=== PATIENT | male | born 1950 | race Caucasian/White ===

== ENCOUNTER 2018-06-14 14:42 | Outpatient (REF) | payer OTHER, SELFPAY ==
[2018-06-14 22:09] LABS: HCT 45.7 % (40.0-50.0); HGB 15.4 g/dL (13.5-17.5); Mean Corp. HGB Concentration 33.7 g/dL (32.0-36.0); Mean Corpuscular Volume 88.9 fL (80-95); Mean Platelet Volume 10.7 fL (8.0-11.0); Platelet Count 169 x1000/uL (130-400); RBC 5.14 m/cumm (4.50-6.00); RBC Distribution Width 12.9 % (11.8-14.1); White Blood Cell Count 7.35 k/cumm (4.4-10.8)
[2018-06-14 22:37] LABS: Anion Gap 8.7 mmol/L (3-11); BUN 17 mg/dL (7-18); CO2 29.3 mmol/L (21.0-32.0); CREATININE 0.93 mg/dL (0.70-1.30); Calcium 9.1 mg/dL (8.5-10.1); Chloride 103 mmol/L (98-107); Glucose 88 mg/dL (70-100); Potassium 4.6 mmol/L (3.5-5.1); Sodium 141 mmol/L (136-145)
== END 2018-06-14 15:02 ==
LOC: NCHCN 14:42
PROVIDERS: PCP Family Medicine; Visit Provider Nurse Practitioner Family
DX: R53.83 Other fatigue (principal); Z13.1 Encounter for screening for diabetes mellitus
CPT/HCPCS: 80048; 85027; 84443

== ENCOUNTER 2021-02-20 11:20 | Outpatient (REF) | payer MEDICARE, SELFPAY ==
[2021-02-21 13:08] LABS: COVID-19 RT-PCR UVMMC Result Negative (Negative)
== END 2021-02-20 11:21 | disposition home or self-care (01) ==
LOC: NCHCN 11:20
PROVIDERS: PCP Family Medicine; Visit Provider Registered Nurse
DX: Z20.822 Contact with and (suspected) exposure to COVID-19 (principal); R19.7 Diarrhea, unspecified
CPT/HCPCS: U0003; U0005

== ENCOUNTER 2021-04-28 18:26 | Outpatient (REF) | payer MEDICARE, SELFPAY ==
[2021-04-28 15:35] LABS: HCT 47.6 % (40.0-50.0); HGB 15.5 g/dL (13.5-17.5); MCH 29.9 pg (27.0-33.0); MCHC 32.6 % (32.0-36.0); MCV 91.7 fL (80-95); MPV 10.7 fL (8.0-11.0); Platelet Count 199 10^3/uL (130-400); RBC 5.19 10^6/uL (4.36-5.78); RDW 12.1 % (11.8-14.1); WBC 7.27 10^3/uL (4.4-10.8)
[2021-04-28 15:56] LABS: ALT 32 U/L (16-63); AST 22 U/L (15-37); Albumin 3.7 g/dL (3.4-5.0); Alkaline Phosphatase 91 U/L (46-116); Anion Gap 10.5 mmol/L (3-11); BUN 17 mg/dL (7-18); Bilirubin, Total 0.6 mg/dL (0.2-1.0); CO2 26.5 mmol/L (21.0-32.0); CREATININE 1.1 mg/dL (0.70-1.30); Calcium 8.6 mg/dL (8.5-10.1); Calculated LDL 124 mg/dL (<100); Chloride 105 mmol/L (98-107); Cholesterol 215 mg/dL (<200); Glucose 87 mg/dL (74-106); HDL Cholesterol 70 mg/dL (40-60); Sodium 142 mmol/L (136-145); Total Protein 7.4 g/dL (6.4-8.2); Triglyceride 108 mg/dL (<150)
== END 2021-04-28 18:27 | disposition home or self-care (01) ==
LOC: NCHCN 18:26
PROVIDERS: PCP Family Medicine; Visit Provider Nurse Practitioner Family
DX: I10 Essential (primary) hypertension (principal); I44.0 Atrioventricular block, first degree; E78.79 Other disorders of bile acid and cholesterol metabolism
CPT/HCPCS: 80053; 80061; 85027

== ENCOUNTER 2023-05-18 15:25 | Outpatient (REF) | payer MEDICARE, SELFPAY ==
[2023-05-18 21:56] LABS: ALT 25 U/L (16-63); AST 21 U/L (15-37); Albumin 3.7 g/dL (3.4-5.0); Alkaline Phosphatase 81 U/L (46-116); BUN 15 mg/dL (7-18); Bilirubin, Total 0.8 mg/dL (0.2-1.0); CREATININE 1.1 mg/dL (0.70-1.30); Calcium 9.1 mg/dL (8.5-10.1); Calculated LDL 131 mg/dL (<100); Chloride 105 mmol/L (98-107); Cholesterol 215 mg/dL (<200); Estimated GFR 71.32 (mL/min/1.73m2); Glucose 104 mg/dL (74-106); HDL Cholesterol 66 mg/dL (40-60); Potassium 3.8 mmol/L (3.5-5.1); Sodium 140 mmol/L (136-145); Total Protein 7.5 g/dL (6.4-8.2); Triglyceride 90 mg/dL (<150)
== END 2023-05-18 15:26 | disposition home or self-care (01) ==
LOC: NCHCN 15:25
PROVIDERS: PCP Family Medicine; Visit Provider Nurse Practitioner Family
DX: I10 Essential (primary) hypertension (principal); E78.5 Hyperlipidemia, unspecified
CPT/HCPCS: 80053; 80061

== ENCOUNTER 2023-09-02 12:20 | Outpatient (REF) | payer MEDICARE, SELFPAY ==
[2023-09-02 18:46] LABS: Calculated LDL 71 mg/dL (<100); Cholesterol 155 mg/dL (<200); HDL Cholesterol 71 mg/dL (40-60); Triglyceride 66 mg/dL (<150)
== END 2023-09-02 12:21 | disposition home or self-care (01) ==
LOC: NCHCN 12:20
PROVIDERS: PCP Family Medicine; Visit Provider Nurse Practitioner Family
DX: E78.5 Hyperlipidemia, unspecified (principal)
CPT/HCPCS: 80061

== ENCOUNTER 2024-05-30 12:02 | Outpatient (REF) | payer MEDICARE, SELFPAY ==
[2024-05-30 14:21] LABS: HCT 45.1 % (40.0-50.0); HGB 14.8 g/dL (13.5-17.5); MCH 29.2 pg (27.0-33.0); MCHC 32.8 % (32.0-36.0); MCV 89 fL (80-95); MPV 10.3 fL (8.0-11.0); Platelet Count 186 10^3/uL (130-400); RBC 5.06 10^6/uL (4.36-5.78); RDW 12.5 % (11.8-14.1); RDW-SD 41.1 fL; WBC 8.15 10^3/uL (4.4-10.8)
[2024-05-30 14:43] LABS: ALT 46 U/L (16-63); AST 30 U/L (15-37); Albumin 3.8 g/dL (3.4-5.0); Alkaline Phosphatase 102 U/L (46-116); Anion Gap 5.9 mmol/L (3-11); BUN 18 mg/dL (7-18); Bilirubin, Total 0.5 mg/dL (0.2-1.0); CO2 30.1 mmol/L (21.0-32.0); Calcium 9.1 mg/dL (8.5-10.1); Calculated LDL 74 mg/dL (<100); Chloride 107 mmol/L (98-107); Cholesterol 169 mg/dL (<200); Estimated GFR 79.47 (mL/min/1.73m2); Glucose 110 mg/dL (74-106); HDL Cholesterol 75 mg/dL (>or=40); Potassium 4.4 mmol/L (3.5-5.1); Sodium 143 mmol/L (136-145); Total Protein 7.6 g/dL (6.4-8.2); Triglyceride 102 mg/dL (<150)
[2024-05-30 23:03] LABS: Hemoglobin A1C 5.9 % (<5.7)
== END 2024-05-30 12:03 | disposition home or self-care (01) ==
LOC: NCHCN 12:02
PROVIDERS: PCP Family Medicine; Visit Provider Nurse Practitioner Family
DX: E78.5 Hyperlipidemia, unspecified (principal); R73.9 Hyperglycemia, unspecified; Z00.00 Encounter for general adult medical examination without abnormal findings; I10 Essential (primary) hypertension
CPT/HCPCS: 80053; 80061; 85027; 83036